=== PATIENT | male | born 1995 | race Caucasian/White ===

== ENCOUNTER 2017-11-08 23:54 | Emergency (ER) | payer OTHER ==
[~2017-11-08] VITALS: Ht 177.8 cm; Wt 91.7 kg
[~2017-11-08 23:54] MED LIST: MOTRIN600 MG PO; PREDNISONE20 MG PO; PROAIR HFA8.5 GM; ZITHROMAX250 MG PO
[2017-11-09 02:02] VITALS: BP 126/72
== END 2017-11-09 02:03 | disposition home or self-care (01) ==
LOC: EME 23:54
DX: S21.131A Puncture wound without foreign body of right front wall of thorax without penetration into thoracic cavity, initial encounter (principal); S20.211A Contusion of right front wall of thorax, initial encounter; W27.0XXA Contact with workbench tool, initial encounter; F17.210 Nicotine dependence, cigarettes, uncomplicated; J45.909 Unspecified asthma, uncomplicated; F41.9 Anxiety disorder, unspecified; Z88.8 Allergy status to other drugs, medicaments and biological substances
CPT/HCPCS: 71046; 99281; 99284